=== PATIENT | female | born 1980 | race Caucasian/White ===

== ENCOUNTER 2018-06-30 18:42 | Outpatient (CLI) | payer OTHER ==
--- NOTE | 2018-06-30 20:12 | Ultrasound Report ---
Reason: DATING VIABILITY 1ST TRIMESTER BLEEDING Procedure Date: 06/30/2018 Accession Number: [id number] / [id number] Procedure: US - OB First Trimester CPT Code: FULL RESULT: EXAM: FIRST TRIMESTER OBSTETRIC ULTRASOUND (Less than 11 weeks) EXAM DATE: 06/30/2018 07:39 PM. CLINICAL HISTORY: DATING VIABILITY 1ST TRIMESTER BLEEDING. LMP: 05/13/2018. COMPARISONS: None. TECHNIQUE: Transabdominal ultrasound examination with static image documentation. CLINICAL DATES: EGA 6 weeks 6 days with FRANCISCO 02/17/2019 based on LMP. ASSESSMENT: Gestational Sac: Single intrauterine. Embryo: CRL (crown-rump length) 8.4 mm = 6 weeks 6 days. Cardiac activity: 117 beats per minute. Yolk sac: 4 mm. Amniotic fluid: Not accurately assessed at this gestational age. Early placenta: Not visible at this gestational age. Other: Small perigestational fluid collection likely implantation hemorrhage measuring 1.3 cm.. MATERNAL STRUCTURES: Uterus: Anteverted. Unremarkable. Cervix: Closed. Bilateral ovaries are unremarkable aside from a 1.1 cm left ovarian cyst. Free Fluid: None. Other: None. IMPRESSION: 1. Single viable intrauterine at EGA 6 weeks 6 days with FRANCISCO 02/17/2019 based on crown-rump length, which is concordant with clinical dates. RADIA
== END 2018-06-30 18:43 | disposition home or self-care (01) ==
LOC: DI 18:42
PROVIDERS: ATTEND Midwife
DX: Z34.01 Encounter for supervision of normal first pregnancy, first trimester (principal)
CPT/HCPCS: 76801

== ENCOUNTER 2018-08-29 12:11 | Outpatient (CLI) | payer OTHER ==
[2018-08-29 13:41] LABS: T4 (THYROXINE) 7.45 ug/dL (6.09-12.23)
[2018-08-29 13:46] LABS: FREE T4 (FREE THYROXINE) 0.69 ng/dL (0.58-1.64)
[2018-08-29 13:50] LABS: TOTAL T3 1.35 ng/mL (0.87-1.78)
== END 2018-08-29 12:12 | disposition home or self-care (01) ==
LOC: LAB 12:11
PROVIDERS: ATTEND Midwife
DX: O99.280 Endocrine, nutritional and metabolic diseases complicating pregnancy, unspecified trimester (principal)
CPT/HCPCS: 36415; 81599; 83519; 84436; 84439; 84445; 84480

== ENCOUNTER 2019-02-23 18:29 | Inpatient (IN) | payer OTHER ==
[~2019-02-23 18:29] MED LIST: ACETAMINOPHEN 1,000 MG/100 ML 100 ML IV ONE; HYDROmorphone 1 MG/ML SYRINGE IVP ONE; KETAMINE 500 MG/10 ML VIAL IVP ONE; KETOROLAC 30 MG/ML VIAL IVP ONE; ONDANSETRON 4 MG/2 ML VIAL IVP ONE; PROPOFOL 200 MG/20 ML VIAL IVP ONE; fentaNYL 100 MCG/2 ML VIAL IVP ONE
[2019-02-23] MEDS ORDERED: OXYTOCIN/DEXTROSE 5 % 30 UNIT/500 ML BAG IV SCH (19:06)
[2019-02-23] MEDS ORDERED: fentaNYL 100 MCG/2 ML VIAL IVP PRN (19:08)
[2019-02-23] MEDS ORDERED: ONDANSETRON 4 MG/2 ML VIAL IVP PRN ×2 (19:08→20:44)
[2019-02-23 19:33] LABS: BASOPHILS % (AUTO) 0.4 %; EOSINOPHILS % (AUTO) 0.1 %; HGB - HEMOGLOBIN 13.5 g/dL (12.0-16.0); LYMPHOCYTES % (AUTO) 3.2 %; MEAN CORPUSCULAR HEMOGLOBIN 31.1 pg (27.0-31.0); MEAN CORPUSCULAR HGB CONC 35.2 g/dL (32.0-36.0); MEAN CORPUSCULAR VOLUME 88.2 fL (81.0-99.0); MEAN PLATELET VOLUME 11.6 fL (7.9-10.8); NEUTROPHILS % (AUTO) 86.8 %; PLT - PLATELET COUNT 206 10^3/uL (130-450); RED BLOOD COUNT 4.34 10^6/uL (4.20-5.40); RED CELL DISTRIBUTION WIDTH 15.6 % (12.0-15.0); WHITE BLOOD COUNT 30.7 x10^3/uL (4.8-10.8)
[2019-02-23 19:37] LABS: ABNORMAL LYMPHS % (MANUAL) 0 %
[2019-02-23 19:59] LABS: BAND NEUTROPHILS % (MANUAL) 11 %; LYMPHOCYTES # (MANUAL) 1.5 10^3/uL (1.5-3.5); LYMPHOCYTES % (MANUAL) 5 %; MONOCYTES # (MANUAL) 2.1 10^3/uL (0.0-1.0); PLATELET ESTIMATE, MANUAL NORMAL (130-450,000) (NORMAL); PLATELET MORPHOLOGY NORMAL APPEARANCE (NORMAL); RBC MORPHOLOGY (MULTIPLE) NORMAL APPEARANCE (NORMAL)
[2019-02-23] MEDS ORDERED: LACTATED RINGERS 1,000 ML IV SCH (20:00)
[2019-02-23 20:01] LABS: DIFFERENTIAL COMMENT MANUAL DIFFERENTIAL
--- NOTE | 2019-02-23 20:11 | ANESTHESIA ---
Pre-Anesthesia VS, & Labs - Diagnosis active labor - Procedure vaginal delivery Height 5 ft 9 in - NPO Last Food Intake: 1700 - Is Patient ?: Yes - Lab Results Current Lab Results: Laboratory Tests 02/23/19 19:20: WBC 30.7 H, RBC 4.34, Hgb 13.5, Hct 38.3, MCV 88.2, MCH 31.1 H, MCHC 35.2, RDW 15.6 H, Plt Count 206, MPV 11.6 H, Neut # (Auto) Not Reportable, Lymph # (Auto) Not Reportable, Bee # (Auto) Not Reportable, Eos # (Auto) Not Reportable, Baso # (Auto) Not Reportable, Absolute Nucleated RBC Not Reportable, Total Counted 100, Band Neuts % (Manual) 11 H, Abnorm Lymph % (Manual) 0, Nucleated RBC % Not Reportable, Neutrophils # (Manual) 27.0 H, Lymphocytes # (Manual) 1.5, Monocytes # (Manual) 2.1 H, Eosinophils # (Manual) 0.0, Basophils # (Manual) 0.0, Differential Comment MANUAL DIFFERENTIAL, Manual Slide Review Indicated, Platelet Estimate NORMAL (130-450,000), Platelet Morphology NORMAL APPEARANCE, RBC Morph Micro Appear NORMAL APPEARANCE Fish Bones: 02/23/19 19:20 Home Medications and Allergies Active Medications Fentanyl (Fentanyl) 50 mcg IVP Q1H PRN PRN Reason: PAIN Lactated Ringer's (Lr) 1,000 mls @ 150 mls/hr IV .Q6H40M DANA OXYTOCIN/DEXTROSE 5 % (Pitocin/Dextrose 5%) 30 unit in 500 mls @ 1 mls/hr IV TI TR DANA; Protocol Ondansetron HCl (Zofran Inj) 4 mg IVP Q4H PRN PRN Reason: Nausea / Vomiting Sodium Chloride (Normal Saline Flush 0.9%) 10 ml IVP PRN PRN PRN Reason: NEEDED PER PROVIDER ORDERS Sodium Chloride (Normal Saline Flush 0.9%) 10 ml IVP 0100,0900,1700 [facility] Allergies/Adverse Reactions: Allergies Allergy/AdvReac Type Severity Reaction Status Date / Time No Known Drug Allergies Allergy Verified 02/23/19 19:21 Anes History & Medical History - Anesthetic History Family history of Anesthesia Complications: Denies Family history of Malignant Hyperthermia: Denies - Medical History Cardiovascular: reports: None Pulmonary: reports: None Gastrointestinal: reports: None Urinary: reports: None Neuro: reports: None Musculoskeletal: reports: None Endocrine/Autoimmune: reports: None Blood Disorders: reports: None Skin: reports: None Smoking Status: Never smoker Psychosocial: reports: No issues indicated - Obstetrical History : 1 Parity: 0 Events: positive: None Exam General: Alert, Oriented x3, Cooperative, No acute distress Dental: Poor dentition (nothing loose) Mallampati classification: IV Thyromental Distance: greater than 6 cm Respiratory: Lungs clear, Normal breath sounds, No respiratory distress, No accessory muscle use Mental/Cognitive Status: Alert/Oriented X3, Normal for patient Plan Anesthesia Type: Epidural Consent for Procedure(s) Verified and Reviewed: Yes Code Status: Attempt Resuscitation ASA classification: 2-Mild systemic disease Is this case an emergency?: No
[2019-02-23] MEDS ORDERED: fent/BUPIV 2 MCG/0.125% 250 ML EP ONE (20:15)
[2019-02-23] MEDS ORDERED: ePHEDrine 50 MG/ML VIAL IVP PRN (20:44)
[2019-02-23] MEDS ORDERED: NALOXONE 0.4 MG/ML VIAL IVP PRN (20:44)
[2019-02-23] MEDS ORDERED: NALBUPHINE 10 MG/ML AMP IVP PRN (20:44)
[2019-02-23] MEDS ORDERED: fent/BUPIV 2 MCG/0.125% 250 ML EP PRN (20:44)
--- NOTE | 2019-02-23 22:50 | HISTORY & PHYSICAL EXAMINATION ---
Admit History - Visit Reason Visit Reason: Other (Transfer of care) - : 1 Parity: 0 Care: positive: Other Risk/History: positive: Genital herpes Complications This : positive: None Smoking Status: Never smoker - Mother's Labs Mother's Blood Type: positive: AB Mother's RH: positive: Positive GBS: positive: Group B Step Negative (Patient is a 38-year-old G1, P0 at 40 weeks and 5 days estimated gestational age transferred from [facility] for second stage arrest. complicated by history of genital HSV in 2013. Advanced maternal age. Has been undergoing contractions since 9 1 PM. Slowly progressed to complete early this afternoon. Pushed for several hours with good descent. However contractions have spaced out to less than q. 7 minutes. She is here for transfer of care for augmentation and possible pain management.) Meds/Allgy - Allergies Allergies/Adverse Reactions: Allergies Allergy/AdvReac Type Severity Reaction Status Date / Time No Known Drug Allergies Allergy Verified 02/23/19 19:21 Review of Systems - Other Findings Other Findings: As per HPI remaining systems are negative Physical - Abdominal Exam Vital Signs: See centricity Contraction Intensity: positive: Mild (Cues 7 to 15 minutes) Uterine Resting Tone: positive: Soft - Monitoring Heart Rate Baseline: 150s Strip Review: positive: Category I - Presentation Presentation: positive: Vertex - Vaginal Exam Membranes: positive: Membranes ruptured Dilation (in cm): Complete Effacement (%): Complete it Station: positive: 2 - Speculum Exam Speculum Exam Performed: positive: No - Other Notes Labor Progress Note/Additional Text: Patient presents at 40 and 5 weeks estimated gestational age with second stage arrest and widely spaced week contractions. Augmentation of labor: -Counseled regarding Pitocin including risks and benefits. -Recommend placement of IUPC to better monitor as adequacy of contractions. position is low enough that may be amenable to vacuum delivery. Patient is open to that prior to . -Did discuss risk and benefits of consents were signed. Will allow to push for 1 hour. If baby is not delivered we will proceed with primary . GHTN: -Presented with mild range elevated blood pressures. -Negative PIH symptoms. - PIH labs within normal limits. We will continue to monitor closely. -Labetalol IV as needed for severe range pressures. Elevated WBCs: Maternal WBCs are 30,000. - and maternal heart rates are not tachycardic Periods no purulent discharge -No fevers -We will closely monitor. HSV: -Exam of external genitalia show no evidence of HSV lesions. FWB: -Category 1 tracing -GBS negative -Vertex Risks of prolonged second stage were discussed with patient she understands risks and benefits and wants to proceed. We will proceed cautiously with trial of labor with anticipation of and possible vacuum assistance if safe and appropriate. Otherwise we will proceed with primary for second stage arrest. .
[2019-02-23 22:51] LABS: BASOPHILS % (AUTO) 0.3 %; EOSINOPHILS % (AUTO) 0.2 %; HGB - HEMOGLOBIN 12.9 g/dL (12.0-16.0); LYMPHOCYTES % (AUTO) 4.3 %; MEAN CORPUSCULAR HEMOGLOBIN 30.9 pg (27.0-31.0); MEAN CORPUSCULAR VOLUME 88.5 fL (81.0-99.0); MEAN PLATELET VOLUME 11.6 fL (7.9-10.8); MONOCYTES % (AUTO) 8.1 %; PLT - PLATELET COUNT 216 10^3/uL (130-450); RED BLOOD COUNT 4.17 10^6/uL (4.20-5.40); RED CELL DISTRIBUTION WIDTH 15.8 % (12.0-15.0); WHITE BLOOD COUNT 25.8 x10^3/uL (4.8-10.8)
[2019-02-23 22:53] LABS: ABNORMAL LYMPHS % (MANUAL) 0 %
[2019-02-23 23:08] LABS: URIC ACID 6.4 mg/dL (2.6-7.2)
[2019-02-23 23:09] LABS: BAND NEUTROPHILS % (MANUAL) 1 %; LYMPHOCYTES # (MANUAL) 0.3 10^3/uL (1.5-3.5); LYMPHOCYTES % (MANUAL) 1 %; MONOCYTES # (MANUAL) 2.1 10^3/uL (0.0-1.0)
[2019-02-23 23:10] LABS: DIFFERENTIAL COMMENT MANUAL DIFFERENTIAL; PLATELET ESTIMATE, MANUAL NORMAL (130-450,000) (NORMAL); PLATELET MORPHOLOGY NORMAL APPEARANCE (NORMAL); RBC MORPHOLOGY (MULTIPLE) NORMAL APPEARANCE (NORMAL)
[2019-02-24] MEDS ORDERED: ceFAZolin 2 GM in SODIUM CHLORIDE 0.9% 100ML 100 ML IV ONE (00:17)
[2019-02-24] MEDS ORDERED: CITRIC ACID/SODIUM CITRATE 15 ML UDC PO ONE (00:18)
--- NOTE | 2019-02-24 00:36 | PROVIDER PROGRESS NOTE ---
Subjective - Prog Note Date Prog Note Date: 02/24/19 Prog Note Time: 00:29 - Subjective Subjective: Adequate contraction patterns achieved at Pitocin 8 milliunits/min. Patient pushed well for an hour with minimal to no descent. 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 Recommended stopping pitocin at the 1 hour liliana as previously described discussed and agreed upon. Risks benefits and alternatives of were discussed and consent written informed consent was obtained. Cefazolin 2 g IV on-call to the OR Bicitra 30 mg p.o. on-call to the OR. High risk of hemorrhage: -Crossed and crossed for 2 units PRBC -Hemorrhage cart to be readily available in OR. -Avoid Methergine given elevated blood pressures- -Kiwi vacuum to be on opens in the room. -Nitroglycerin IV to be available in the room given potential for constriction bands in the setting of prolonged second stage -TXA to be administered shortly after delivery of placenta EFM 155 mod sergey 15x15 accels. Decels with pushing TOCO: Q3-5 min Objective - Lab Results Fish Bones: 02/23/19 22:44 Other Labs: Lab Results x24hrs 02/23/19 02/23/19 02/23/19 Range/Units 22:44 22:44 22:44 WBC 25.8 H (4.8-10.8) x10^3/uL RBC 4.17 L (4.20-5.40) 10^6/uL Hgb 12.9 (12.0-16.0) g/dL Hct 36.9 L (37.0-47.0) % MCV 88.5 (81.0-99.0) fL MCH 30.9 (27.0-31.0) pg MCHC 35.0 (32.0-36.0) g/dL RDW 15.8 H (12.0-15.0) % Plt Count 216 (130-450) 10^3/uL MPV 11.6 H (7.9-10.8) fL Neut # (Auto) Not Reportable Lymph # (Auto) Not Reportable [place] # (Auto) Not Reportable Eos # (Auto) Not Reportable Baso # (Auto) Not Reportable Absolute Nucleated RBC Not Reportable Total Counted 100 Band Neuts % (Manual) 1 (0 - 10) % Abnorm Lymph % (Manual) 0 % Nucleated RBC % Not Reportable Neutrophils # (Manual) 23.5 H (1.5-6.6) 10^3/uL Lymphocytes # (Manual) 0.3 L (1.5-3.5) 10^3/uL Monocytes # (Manual) 2.1 H (0.0-1.0) 10^3/uL Eosinophils # (Manual) 0.0 (0-0.7) 10^3/uL Basophils # (Manual) 0.0 (0-0.1) 10^3/uL Differential Comment MANUAL DIFFERENTIAL Manual Slide Review Indicated Platelet Estimate NORMAL (130-450,000) (NORMAL) Platelet Morphology NORMAL APPEARANCE (NORMAL) RBC Morph Micro Appear NORMAL APPEARANCE (NORMAL) Uric Acid 6.4 (2.6-7.2) mg/dL AST 29 (10-42) IU/L Lactate Dehydrogenase 136 (91-225) IU/L Blood Type Blood Type Recheck Antibody Screen Crossmatch IS Only 02/23/19 02/23/19 02/23/19 Range/Units 22:44 19:20 19:20 WBC 30.7 H (4.8-10.8) x10^3/uL RBC 4.34 (4.20-5.40) 10^6/uL Hgb 13.5 (12.0-16.0) g/dL Hct 38.3 (37.0-47.0) % MCV 88.2 (81.0-99.0) fL MCH 31.1 H (27.0-31.0) pg MCHC 35.2 (32.0-36.0) g/dL RDW 15.6 H (12.0-15.0) % Plt Count 206 (130-450) 10^3/uL MPV 11.6 H (7.9-10.8) fL Neut # (Auto) Not Reportable Lymph # (Auto) Not Reportable [place] # (Auto) Not Reportable Eos # (Auto) Not Reportable Baso # (Auto) Not Reportable Absolute Nucleated RBC Not Reportable Total Counted 100 Band Neuts % (Manual) 11 H (0 - 10) % Abnorm Lymph % (Manual) 0 % Nucleated RBC % Not Reportable Neutrophils # (Manual) 27.0 H (1.5-6.6) 10^3/uL Lymphocytes # (Manual) 1.5 (1.5-3.5) 10^3/uL Monocytes # (Manual) 2.1 H (0.0-1.0) 10^3/uL Eosinophils # (Manual) 0.0 (0-0.7) 10^3/uL Basophils # (Manual) 0.0 (0-0.1) 10^3/uL Differential Comment MANUAL DIFFERENTIAL Manual Slide Review Indicated Platelet Estimate NORMAL (130-450,000) (NORMAL) Platelet Morphology NORMAL APPEARANCE (NORMAL) RBC Morph Micro Appear NORMAL APPEARANCE (NORMAL) Uric Acid (2.6-7.2) mg/dL AST (10-42) IU/L Lactate Dehydrogenase (91-225) IU/L Blood Type AB POSITIVE Blood Type Recheck AB POSITIVE Antibody Screen NEGATIVE Crossmatch IS Only See Detail
[2019-02-24] MEDS ORDERED: CARBOPROST TROMETHAMINE 250 MCG/ML AMP IM ONE ×2 (00:53→04:04)
[2019-02-24] MEDS ORDERED: METHYLERGONOVINE 0.2 MG/ML AMP ONE (00:53)
[2019-02-24] MEDS ORDERED: SODIUM CHLORIDE FLUSH 0.9% 10 ML SYRINGE IVP SCH (01:00)
[2019-02-24] MEDS ORDERED: BUPIVACAINE 0.5% PF 10 ML VIAL ONE (01:05)
[2019-02-24] MEDS ORDERED: LIDOCAINE-PF 2% 10 ML AMP SUBQ ONE (01:05)
[2019-02-24] MEDS ORDERED: fentaNYL 100 MCG/2 ML VIAL ONE (01:05)
[2019-02-24] MEDS ORDERED: OXYTOCIN/DEXTROSE 5 % 30 UNIT/500 ML BAG IV ONE (01:06)
[2019-02-24] MEDS ORDERED: miSOPROStol 200 MCG TABLET ONE (01:22)
[2019-02-24] MEDS ORDERED: NITROGLYCERIN 50 MG/250 ML 50 MG/250 ML BOTTLE IV ONE (01:26)
[2019-02-24] MEDS ORDERED: LACTATED RINGERS 1,000 ML IV ONE ×2 (02:00→03:18)
[2019-02-24] MEDS ORDERED: SODIUM CHLORIDE FLUSH 0.9% 10 ML SYRINGE ONE (02:19)
[2019-02-24] MEDS ORDERED: METHYLENE BLUE 0.5% 50 MG/10 ML AMPULE ONE (02:21)
[2019-02-24] MEDS ORDERED: OXYTOCIN/DEXTROSE 5 % 30 UNIT/500 ML BAG IV PRN (04:04)
[2019-02-24] MEDS ORDERED: ONDANSETRON ODT 4 MG TABLET TL PRN (04:04)
[2019-02-24] MEDS ORDERED: SODIUM CHLORIDE FLUSH 0.9% 10 ML SYRINGE IVP PRN (04:04)
[2019-02-24] MEDS ORDERED: diphenhydrAMINE 25 MG CAPSULE PO PRN (04:04)
[2019-02-24] MEDS ORDERED: HYDROCORTISONE 1% CREAM 28 GM TUBE PR PRN (04:04)
[2019-02-24] MEDS ORDERED: diphenhydrAMINE INJ 50 MG/ML VIAL IVP PRN (04:04)
[2019-02-24] MEDS ORDERED: WITCH HAZEL/GLYCERIN 1 PAD TOP PRN (04:04)
[2019-02-24] MEDS ORDERED: HYDROmorphone PCA 20MG/100ML IV PRN (04:09)
[2019-02-24] MEDS ORDERED: LABETALOL 5 MG/1 ML 20 ML MDV IVP PRN (04:13)
--- NOTE | 2019-02-24 04:20 | OPERATIVE REPORT ---
Operative Report - General Admit Date: 02/23/19 Planned Procedure: Primary low transverse Pre-Op Diagnosis: IUP at 40 weeks and 6 days estimated gestational Procedure Performed: Primary low transverse Post Op Diagnosis: Same and delivery of term gestation - Procedure Note Primary Surgeon: Tayolr Oh MD Secondary Surgeon: Dr. Michelle DODGE Anesthesia Provider: Asad Diaz CRNA Anesthesia Technique: Combo spinal/epidural Pathology: Placenta for routine discard IV Fluids (mL): 700 (crystalloid) Estimated Blood Loss (mL): 900 Urine Output (mL): 400 (Blood-tinged urine then bladder filled with methylene blue to assess for bladder injury; blue-tinged urine) Indications: Patient is a 38-year-old at 40 and 6 weeks estimated gestational age who p resented as a transfer of care from [facility]. She had been weightbearing outpatient and have been complete since 1 PM this afternoon. After failing to progress after 4+ hours of pushing she presented to [facility] for possible augmentation and pain management. The time of presentation she was having minimal to no contractions. IUPC was placed and Pitocin was started. tracing was category 1. Once contractions became more regular, she was offered 1 hour of pushing. Patient agreed that if no progress was made within the 1 hour, we would proceed to previous . She pushed well for 1 hour with minimal descent. Assessment of her pelvis and position of the baby deemed vacuum-assisted vaginal delivery to be an inappropriate next step. was recommended. Risks benefits and alternatives were discussed. Consent was obtained to move forward with primary for second stage arrest likely secondary to cephalopelvic disproportio n. Findings: Female infant with head fixed deeply in the pelvis. Apgars of 4 and 9, Weight pending. Cord gases: Arteral 7.13/61.1/15.5/20/21.8/-10.2 Normal uterus, tubes, and ovaries. Complications: Bilateral extensions in the lower uterine segment; Repaired - Other Other Information/Narrative: Risks benefits alternatives for primary low transverse were discussed. Written informed consent was obtained. Discussed increased risk of hemorrhage given prolonged second stage and 2 units of blood were crossmatched and set aside for the procedure. Patient was brought to the operating room where she underwent spinal anesthesia. She was placed in supine position, and prepped and draped in the usual sterile fashion. Garcia catheter was in place and SCDs were on and confirmed to be activated. Cefazolin 2 g IV was administered prior to incision. A Pfannenstiel skin incision was made with the scalpel and carried through to the underlying layer of fascia using the Bovie. The fascia was incised in the midline and extended laterally using Soriano scissors. Elkin clamps were used to elevate the superior aspect of the fascial incision, which was elevated, and the underlying rectus muscles were dissected off bluntly and using Soriano scissors. Attention was then turned to the inferior aspect of the fascial incision, which in similar fashion was grasped with Elkin clamps, elevated, and the underlying rectus muscles were dissected off bluntly and using Soriano scissors. The rectus muscles were bluntly in the midline. The peritoneum was bluntly dissected, entered, and extended superiorly and inferiorly with good visualization of the bladder. The bladder blade was inse rted. Uterine incision was made with a scalpel well above the vesico-uterine fold. The uterus was entered bluntly. The incision was extended with manual stretch and a cephalad caudal direction. Infant's head was lifted from the pelvis with some difficulty. Kiwi vacuum is applied to head to lift the head to the incision. Infant was then delivered from a vertex position. Cord was clamped x2 and cut. Baby was handed off to the pediatric team. Cord blood was collected. A segment of cord was collected for cord gases. Arterial blood gases are noted as above. Subsequent to the collection of this blood, the placenta was removed spontaneously intact with a 3-vessel cord noted. The uterus was exteriorized and cleared of all clots and debris v ia manual swipe using [place] x2. Bilateral extensions were noted in the lower uterine segment. Corners were grasped with Allis clamps. The lateral extensions were closed with 0 Vicryl in a running locked fashion, taking care to avoid the ureters and lateral blood vessels. The hysterotomy was then repaired in 2 layers using 0 Vicryl. First layer was running lock stitch. The second layer was a running imbricating stitch. Good hemostasis was noted. The bladder was then back filled with dilute methylene blue to identify the edges of the bladder and confirmed that there was no damage to the bladder. The bladder was fully insufflated with the methylene blue tinted normal saline. No passage of blue fluid was noted into the pelvis. Bladder was intact. The incision was well away from the upper margin of the vesicouterine peritoneum. The uterus was returned to the abdomen. Paracolic gutters were irrigated and cleared of all clots and debris. Uterine incision and bilateral extensions were again evaluated and confirmed to be hemostatic. The peritoneum was then closed with a running suture using 2-0 Vicryl. The rectus muscles were reapproximated using interrupted mattress sutures using 2-0 chromic. Fascial layers were noted to be hemostatic and free of any small bleeders. Rectus layer was then closed using 0 Vicryl x2 in a running suture, Initiated at each corner and meeting at the midline. Subcutaneous tissue was irrigated. Any residual bleeders were cauterized. The subcutaneous tissue was closed with a running sub-cutaneous suture using 2-0 chromic. Skin was closed with subcuticular suture using 4-0 Monocryl. Steri-Strips were placed and island dressing was placed to protect the incision. Procedure was well-tolerated and without significant complication. Patient and baby were brought to the recovery room in good condition
[2019-02-24] MEDS ORDERED: HYDROmorphone 2 MG/ML VIAL IVP PRN (05:30)
[2019-02-24] MEDS: LACTATED RINGERS 1,000 ML IV SCH ×2 (08:14→09:57)
[2019-02-24] MEDS: DOCUSATE SODIUM 100 MG CAPSULE PO SCH ×2 (08:42→22:38)
[2019-02-24] MEDS: SIMETHICONE CHEW 80 MG TABLET PO SCH ×3 (08:43→18:15)
[2019-02-24] MEDS: oxyCODONE 5 MG TABLET PO PRN ×3 (08:43→18:22)
[2019-02-24] MEDS: KETOROLAC 30 MG/ML VIAL IVP SCH ×3 (08:43→22:07)
[2019-02-24] MEDS: SODIUM CHLORIDE FLUSH 0.9% 10 ML SYRINGE IVP SCH ×2 (08:49→22:08)
[2019-02-24] MEDS: ACETAMINOPHEN 500 MG TABLET PO SCH ×2 (10:37→18:21)
[2019-02-24] MEDS ORDERED: LACTATED RINGERS 500 ML IV ONE (10:46)
[2019-02-24 12:52] LABS: BASOPHILS # (AUTO) 0.1 10^3/uL (0.0-0.1); BASOPHILS % (AUTO) 0.4 %; EOSINOPHILS % (AUTO) 0.2 %; HGB - HEMOGLOBIN 10.2 g/dL (12.0-16.0); LYMPHOCYTES # (AUTO) 1.4 10^3/uL (1.5-3.5); LYMPHOCYTES % (AUTO) 8.2 %; MEAN CORPUSCULAR HEMOGLOBIN 30.4 pg (27.0-31.0); MEAN CORPUSCULAR HGB CONC 34.3 g/dL (32.0-36.0); MEAN CORPUSCULAR VOLUME 88.7 fL (81.0-99.0); MEAN PLATELET VOLUME 11.2 fL (7.9-10.8); MONOCYTES # (AUTO) 1.7 10^3/uL (0.0-1.0); MONOCYTES % (AUTO) 9.8 %; NEUTROPHILS # (AUTO) 13.6 10^3/uL (1.5-6.6); NEUTROPHILS % (AUTO) 80.5 %; PLT - PLATELET COUNT 181 10^3/uL (130-450); RED BLOOD COUNT 3.35 10^6/uL (4.20-5.40); RED CELL DISTRIBUTION WIDTH 15.9 % (12.0-15.0); WHITE BLOOD COUNT 16.9 x10^3/uL (4.8-10.8)
[2019-02-24 13:04] LABS: CREATININE 0.6 mg/dL (0.4-1.0)
[2019-02-24 13:44] LABS: RBC MORPHOLOGY (MULTIPLE) 2+ ANISOCYTOSIS (NORMAL)
--- NOTE | 2019-02-24 14:15 | PROVIDER PROGRESS NOTE ---
Subjective - Prog Note Date Prog Note Date: 02/24/19 Prog Note Time: 11:30 - Subjective Pt reports feeling: Improved Subjective: Genesis is doing well this morning. She is postop day 0 status post LT CS. Pain is well managed with oral medications. She has been up and ambulating and voiding. Tolerating p.o. Baby is doing well and is at bedside Blood pressures have been within normal range since time of delivery. No headac he, vision change, right upper quadrant pain. Objective - Vital Signs/Intake & Output Vital Signs: Vital Signs x48h Temp Pulse Resp BP Pulse Ox 02/24/19 12:32 98.8 F 89 16 108/53 L 97 02/24/19 11:07 12 02/24/19 10:00 16 02/24/19 09:00 16 02/24/19 07:45 98.8 F 92 14 126/62 97 02/24/19 06:30 99.0 F 100 16 125/63 97 Intake & Output: Intake & Output 02/21/19 02/22/19 02/23/19 02/24/19 23:59 23:59 23:59 23:59 Intake Total 10.067 1302.667 Output Total 285 Balance 10.067 1017.667 - Objective General Appearance: positive: No acute distress Neck: positive: Nml inspection Respiratory: positive: No respiratory distress Cardiovascular: positive: Regular rate & rhythm Abdomen: positive: Other (Appropriately tender with fundus firm at umbilicus.Incision is clean, dry, and ntact with island dressing in place) Back: positive: Nml inspection Skin: positive: Color nml Neurologic/Psychiatric: positive: Oriented x3 - Lab Results Fish Bones: 02/24/19 12:45 02/24/19 12:45 Other Labs: Lab Results x24hrs 02/24/19 02/24/19 02/23/19 Range/Units 12:45 12:45 22:44 WBC 16.9 H (4.8-10.8) x10^3/uL RBC 3.35 L (4.20-5.40) 10^6/uL Hgb 10.2 L (12.0-16.0) g/dL Hct 29.7 L (37.0-47.0) % MCV 88.7 (81.0-99.0) fL MCH 30.4 (27.0-31.0) pg MCHC 34.3 (32.0-36.0) g/dL RDW 15.9 H (12.0-15.0) % Plt Count 181 (130-450) 10^3/uL MPV 11.2 H (7.9-10.8) fL Neut # (Auto) 13.6 H Lymph # (Auto) 1.4 L [place] # (Auto) 1.7 H Eos # (Auto) 0.0 Baso # (Auto) 0.1 Absolute Nucleated RBC 0.00 Total Counted Band Neuts % (Manual) (0 - 10) % Abnorm Lymph % (Manual) % Nucleated RBC % 0.0 Neutrophils # (Manual) (1.5-6.6) 10^3/uL Lymphocytes # (Manual) (1.5-3.5) 10^3/uL Monocytes # (Manual) (0.0-1.0) 10^3/uL Eosinophils # (Manual) (0-0.7) 10^3/uL Basophils # (Manual) (0-0.1) 10^3/uL Differential Comment Manual Slide Review Indicated Platelet Estimate (NORMAL) Platelet Morphology (NORMAL) RBC Morph Micro Appear 2+ ANISOCYTOSIS (NORMAL) Creatinine 0.6 (0.4-1.0) mg/dL Estimated GFR (MDRD) 112 (>89) Uric Acid (2.6-7.2) mg/dL AST 26 (10-42) IU/L Lactate Dehydrogenase 136 (91-225) IU/L Blood Type Blood Type Recheck Antibody Screen Crossmatch IS Only 02/23/19 02/23/19 02/23/19 Range/Units 22:44 22:44 22:44 WBC 25.8 H (4.8-10.8) x10^3/uL RBC 4.17 L (4.20-5.40) 10^6/uL Hgb 12.9 (12.0-16.0) g/dL Hct 36.9 L (37.0-47.0) % MCV 88.5 (81.0-99.0) fL MCH 30.9 (27.0-31.0) pg MCHC 35.0 (32.0-36.0) g/dL RDW 15.8 H (12.0-15.0) % Plt Count 216 (130-450) 10^3/uL MPV 11.6 H (7.9-10.8) fL Neut # (Auto) Not Reportable Lymph # (Auto) Not Reportable [place] # (Auto) Not Reportable Eos # (Auto) Not Reportable Baso # (Auto) Not Reportable Absolute Nucleated RBC Not Reportable Total Counted 100 Band Neuts % (Manual) 1 (0 - 10) % Abnorm Lymph % (Manual) 0 % Nucleated RBC % Not Reportable Neutrophils # (Manual) 23.5 H (1.5-6.6) 10^3/uL Lymphocytes # (Manual) 0.3 L (1.5-3.5) 10^3/uL Monocytes # (Manual) 2.1 H (0.0-1.0) 10^3/uL Eosinophils # (Manual) 0.0 (0-0.7) 10^3/uL Basophils # (Manual) 0.0 (0-0.1) 10^3/uL Differential Comment MANUAL DIFFERENTIAL Manual Slide Review Indicated Platelet Estimate NORMAL (130-450,000) (NORMAL) Platelet Morphology NORMAL APPEARANCE (NORMAL) RBC Morph Micro Appear NORMAL APPEARANCE (NORMAL) Creatinine (0.4-1.0) mg/dL Estimated GFR (MDRD) (>89) Uric Acid 6.4 (2.6-7.2) mg/dL AST 29 (10-42) IU/L Lactate Dehydrogenase (91-225) IU/L Blood Type Blood Type Recheck AB POSITIVE Antibody Screen Crossmatch IS Only 02/23/19 02/23/19 Range/Units 19:20 19:20 WBC 30.7 H (4.8-10.8) x10^3/uL RBC 4.34 (4.20-5.40) 10^6/uL Hgb 13.5 (12.0-16.0) g/dL Hct 38.3 (37.0-47.0) % MCV 88.2 (81.0-99.0) fL MCH 31.1 H (27.0-31.0) pg MCHC 35.2 (32.0-36.0) g/dL RDW 15.6 H (12.0-15.0) % Plt Count 206 (130-450) 10^3/uL MPV 11.6 H (7.9-10.8) fL Neut # (Auto) Not Reportable Lymph # (Auto) Not Reportable [place] # (Auto) Not Reportable Eos # (Auto) Not Reportable Baso # (Auto) Not Reportable Absolute Nucleated RBC Not Reportable Total Counted 100 Band Neuts % (Manual) 11 H (0 - 10) % Abnorm Lymph % (Manual) 0 % Nucleated RBC % Not Reportable Neutrophils # (Manual) 27.0 H (1.5-6.6) 10^3/uL Lymphocytes # (Manual) 1.5 (1.5-3.5) 10^3/uL Monocytes # (Manual) 2.1 H (0.0-1.0) 10^3/uL Eosinophils # (Manual) 0.0 (0-0.7) 10^3/uL Basophils # (Manual) 0.0 (0-0.1) 10^3/uL Differential Comment MANUAL DIFFERENTIAL Manual Slide Review Indicated Platelet Estimate NORMAL (130-450,000) (NORMAL) Platelet Morphology NORMAL APPEARANCE (NORMAL) RBC Morph Micro Appear NORMAL APPEARANCE (NORMAL) Creatinine (0.4-1.0) mg/dL Estimated GFR (MDRD) (>89) Uric Acid (2.6-7.2) mg/dL AST (10-42) IU/L Lactate Dehydrogenase (91-225) IU/L Blood Type AB POSITIVE Blood Type Recheck Antibody Screen NEGATIVE Crossmatch IS Only See Detail Assessment/Plan - Problem List (1) Delivery by section Impression: Postop day 0 status post LT CS Postop: -Doing well postop. -Up and ambulating -Tolerating p.o. -Pain managed with oral pain medications -Voiding G HTN: -Blood pressures well within normal limits since time of delivery -Continue to monitor Anticipate DC home on postop day 2.
[2019-02-24] MEDS: ceFAZolin 2 GM in SODIUM CHLORIDE 0.9% 100ML 100 ML IV SCH (15:09)
[2019-02-24] MEDS ORDERED: HYDROmorphone 0.5 MG/0.5 ML SYRINGE IVP PRN (18:33)
[2019-02-24] MEDS: SODIUM CHLORIDE FLUSH 0.9% 10 ML SYRINGE IVP PRN (22:08)
[2019-02-25] MEDS: oxyCODONE 5 MG TABLET PO PRN ×3 (00:07→18:26)
[2019-02-25] MEDS: ceFAZolin 2 GM in SODIUM CHLORIDE 0.9% 100ML 100 ML IV SCH ×2 (00:08→09:55)
[2019-02-25] MEDS: SODIUM CHLORIDE FLUSH 0.9% 10 ML SYRINGE IVP SCH ×2 (00:09→10:09)
[2019-02-25] MEDS ORDERED: IBUPROFEN 600 MG TABLET PO SCH (05:00)
[2019-02-25] MEDS: KETOROLAC 30 MG/ML VIAL IVP SCH (05:46)
[2019-02-25] MEDS: SODIUM CHLORIDE FLUSH 0.9% 10 ML SYRINGE IVP PRN (05:46)
[2019-02-25] MEDS: ACETAMINOPHEN 500 MG TABLET PO SCH ×3 (05:47→21:41)
[2019-02-25] MEDS ORDERED: KETOROLAC 30 MG/ML VIAL ONE (05:53)
[2019-02-25] MEDS: DOCUSATE SODIUM 100 MG CAPSULE PO SCH ×2 (08:20→21:41)
[2019-02-25] MEDS: SIMETHICONE CHEW 80 MG TABLET PO SCH ×3 (08:21→21:41)
[2019-02-25] MEDS: IBUPROFEN 600 MG TABLET PO SCH ×2 (12:26→18:26)
--- NOTE | 2019-02-25 17:33 | PROVIDER PROGRESS NOTE ---
Subjective - Prog Note Date Prog Note Date: 02/25/19 Prog Note Time: 12:32 - Subjective Pt reports feeling: Improved Subjective: Post op day 1 status post low transverse for second stage arrest new Doing well. Up and ambulating, tolerating p.o., voiding. Lochia moderate to minimal. Pain well managed with oral pain medications. Breast-feeding is going well. Patient has no complaints. Objective - Vital Signs/Intake & Output Vital Signs: Vital Signs x48h Temp Pulse Resp BP BP Pulse Ox 02/25/19 17:01 98.4 F 93 16 100/57 L 97 02/25/19 13:52 98.6 F 76 15 112/69 98 02/25/19 10:00 98.1 F 91 18 99/62 96 Intake & Output: Intake & Output 02/22/19 02/23/19 02/24/19 02/25/19 23:59 23:59 23:59 23:59 Intake Total 10.067 2402.667 700 Output Total 2950 600 Balance 10.067 -547.333 100 - Objective General Appearance: positive: No acute distress Neck: positive: Nml inspection Respiratory: positive: Chest non-tender, No respiratory distress Cardiovascular: positive: Regular rate & rhythm Abdomen: positive: Other (Fundus firm below the umbilicus. Incision with Steri- Strips clean dry and intact) Skin: positive: Color nml Extremities: positive: Non-tender, Other (Mild pedal edema) Neurologic/Psychiatric: positive: Oriented x3 - Lab Results Fish Bones: 02/24/19 12:45 02/24/19 12:45 Assessment/Plan - Problem List (1) Delivery by section Impression: Postop day 1 status post LT CS -Blood pressures have been within normal limits at the time of delivery. -Normal temperature for 24 hours postop. Will discontinue cefazolin -Up and ambulating, tolerating p.o., voiding, pain well managed. Making appropriate progress towards discharge Anticipate DC home in the morning
[2019-02-26] MEDS: IBUPROFEN 600 MG TABLET PO SCH ×2 (01:00→07:36)
[2019-02-26] MEDS: oxyCODONE 5 MG TABLET PO PRN (01:14)
[2019-02-26] MEDS: ACETAMINOPHEN 500 MG TABLET PO SCH ×2 (06:19→07:28)
[2019-02-26] MEDS: SODIUM CHLORIDE FLUSH 0.9% 10 ML SYRINGE IVP SCH (07:31)
[2019-02-26] MEDS: DOCUSATE SODIUM 100 MG CAPSULE PO SCH (07:36)
[2019-02-26] MEDS: SIMETHICONE CHEW 80 MG TABLET PO SCH (08:45)
[2019-02-26 13:14] VITALS: BP 125/59
--- NOTE | 2019-02-26 15:16 | Labor Flowsheet ---
Labor Flowsheet Datetime Report Generated by CPN: 02/26/2019 15:15 Datetime: 02/24/2019 01:04 Comments: monitoring discontinued, patient transferred to OR. Datetime: 02/24/2019 01:00 Pulse: 111 SpO2 (%): 98 LaborFlag: Labor Datetime: 02/24/2019 00:30 UTERINE ACTIVITY Monitor Mode: Internal Frequency (min): 3-5 Quality: Strong Duration (sec): 90-120 Pattern: Normal: <= 5 Contractions in 10 Minutes Resting Tone (Palpate): Relaxed Resting Tone IUP (mmHg): 5 Intensity IUP (mmHg): 50 ASSESSMENT A Monitor Mode: External US FHR Baseline Rate : 155 Variability: Moderate 6-25 bpm Accelerations: 15X15 Decelerations: None Category: Category I Datetime: 02/24/2019 00:11 MEDICATIONS Pitocin (milliunits): Discontinued Datetime: 02/24/2019 00:10 COMMUNICATION Communication: Provider at Bedside Communication Comments: Dr. McSorley @ bedside; decision made for c/section for failure to progress Datetime: 02/23/2019 23:56 VITAL SIGNS NBP Sys/Kandy/Mean (mmHg): 151 : 73 : 91 Datetime: 02/23/2019 23:17 Medication Comments: Increased to [address] McSorley, provider @ bedside Datetime: 02/23/2019 23:15 Contraction Comments: with pushes Datetime: 02/23/2019 23:10 STAGE 2 Pushing: Coached on Pushing Pushing Position: Pushing with Contractions Pushing Progress: Descent with Pushing Datetime: 02/23/2019 23:00 Temperature (C): 36.7 Datetime: 02/23/2019 20:30 Monitor Interventions for FHR: FSE Applied Datetime: 02/23/2019 20:25 Epidural Procedure: Test Dose Datetime: 02/23/2019 20:10 PROCEDURE TIME OUT Procedure Verify: Correct Patient Identity; Accurate Procedure Consent Form; Agreement on Procedure to be Done; Correct Patient Position; Safety Precautions Based on Patient History or Medication Use ANESTHESIA Anesthesia Plans: Epidural Epidural Positioning: Sitting Datetime: 02/23/2019 19:50 Provider Notified (Name): CUSTOMER SERVICES SUPERVISOR Joe Notification Reason: Patient Request Datetime: 02/23/2019 19:33 Monitor Interventions for UA: IUPC Inserted VAGINAL EXAM Dilatation (cm): 10.0 Effacement (%): 100 Station: 3 Exam by: Dr. 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
--- NOTE | 2019-03-04 02:46 | DISCHARGE SUMMARY ---
"Discharge Summary Admit Date: 02/23/19 Discharge Date: 02/26/19 Discharging Provider: Nya Oh MD Code Status: Attempt Resuscitation Condition at Discharge: Good Discharge Disposition: 01 Home, Self Care - DIAGNOSES Admission Diagnoses: IUP at 40w5d EGA Second stage arrest History of HSV Gestational hypertension Discharge Diagnoses with Status of Each Condition: Same and delivery of term gestation Primary fort second stage arrest/cephalopelvic disproportion - HPI History of Present Illness: Ms Ching is a 38-year-old G1, P0 at 40 weeks and 5 days estimated gestational age who presented from [facility] with second stage arrest. complicated by history of genital HSV in 2013. Advanced maternal age. Had been undergoing contractions since 02/22/19 PM. Slowly progressed to complete early in the afternoon on 02/23/19. Pushed for several hours with good descent per outside provider. However contractions have spaced out to less than every 7 minutes. She presents transfer of care for augmentation and possible pain management. - CONSULTS | PROCEDURES Procedures: Primary low transverse - HOSPITAL COURSE Hospital Course: Admitted at 40w5d ega with second stage arrest. Counseled at admission with regard to the following: Augmentation of labor: -Counseled regarding Pitocin including risks and benefits. -Recommend placement of IUPC to better monitor as adequacy of contractions. position is low enough that may be amenable to vacuum delivery. -Did discuss risk and benefits of consents were signed. Will allow to push for 1 hour. If baby is not delivered, will proceed with primary . GHTN: -Presented with mild range elevated blood pressures. -Negative PIH symptoms. - PIH labs within normal limits. . Elevated WBCs: Maternal WBCs are 30,000. - and maternal heart rates are not tachycardic Periods no purulent discharge -No fevers -We will closely monitor. HSV: -Exam of external genitalia show no evidence of HSV lesions. FWB: -Category 1 tracing -GBS negative -Vertex Pitocin was started. Epidural was placed. IUPC was palced for more accurate titration of pitocin. IUPC revealed that contractions were not adequate. Pitocin was titrated up to 8 mU/min before adeqaucy was reached. Once contractions became more regular, she was offered 1 hour of pushing. Patient agreed that if no progress was made within the 1 hour, we would proceed to previous . She pushed well for 1 hour with minimal descent. Assessment of her pelvis and position of the baby deemed vacuum-assisted vaginal delivery to be an inappropriate next step. was recommended. Risks benefits and altern atives were discussed. Consent was obtained to move forward with primary C- section for second stage arrest likely secondary to cephalopelvic disproportion. Proceeded with primary , delivering female with head fixed deeply in the pelvis. Apgars of 4 and 9. Weight 3840g Cord gases: Arteral 7.13/61.1/15.5/20/21.8/-10.2 Normal uterus, tubes, and ovaries. There were bilateral uterine extensions, repaired with 0-Vicryl. See procedure note. EBL 900. Cefazolin continued for 24 hours post procedure given elevated WBC and presence of extensions. Post-operative course was uncomplicated. Discharged to home on POD#2. - ALLERGIES Allergies/Adverse Reactions: Allergies Allergy/AdvReac Type Severity Reaction Status Date / Time No Known Drug Allergies Allergy Verified 02/23/19 19:21 - MEDICATIONS Home Medications: Ambulatory Orders Medication Instructions Recorded Confirmed Amox/Clav 875/125 [Augmentin] 1 each PO Q12H #20 tablet 03/02/19 - PHYSICAL EXAM AT DISCHARGE General Appearance: positive: No acute distress Neck: positive: Nml inspection Respiratory: positive: Chest non-tender, No respiratory distress, Breath sounds nml Cardiovascular: positive: Regular rate & rhythm Abdomen: positive: Non-tender, Other (Incision clean dry and intact with Steri- Strips in place) Skin: positive: Color nml Extremities: positive: Non-tender, No pedal edema Neurologic/Psychiatric: positive: Oriented x3 - LABS Result Diagrams: 02/24/19 12:45 02/24/19 12:45 - FOLLOW UP Follow Up: Discharge to home with follow-up in clinic in 1 week for incision check and at 6 weeks for for routine exam - TIME SPENT Time Spent in Discharge (Minutes): 30"
== END 2019-02-26 14:15 | disposition home or self-care (01) | DRG 787 ==
LOC: FBP 18:49
PROVIDERS: ADMIT Obstetrics & Gynecology; ATTEND Obstetrics & Gynecology
PROC: 10D00Z1 Extraction of Products of Conception, Low, Open Approach (ICD-10-PCS; principal; 2019-02-24 01:00)
DX: O62.1 Secondary uterine inertia (principal); O98.32 Other infections with a predominantly sexual mode of transmission complicating childbirth; O75.2 Pyrexia during labor, not elsewhere classified; A60.00 Herpesviral infection of urogenital system, unspecified; O13.4 Gestational [pregnancy-induced] hypertension without significant proteinuria, complicating childbirth; O75.89 Other specified complications of labor and delivery; D72.829 Elevated white blood cell count, unspecified; Z3A.40 40 weeks gestation of pregnancy; Z37.0 Single live birth
CPT/HCPCS: 36415; 82565; 83615; 84450; 84550; 85025; 86850; 86900; 86901; 86920; A9270; J0131; J1170; J7120

== ENCOUNTER 2019-03-02 11:10 | Emergency (ER) | payer OTHER ==
[2019-03-02] MEDS ORDERED: LIDOCAINE 1% 2 ML VIAL MC ONE (11:56)
[2019-03-02] MEDS ORDERED: cefTRIAXone 1 GM VIAL IM STA (11:56)
--- NOTE | 2019-03-02 11:57 | ED Physician Documentation ---
History of Present Illness - Stated complaint Stated Complaint: POST C SECTION COMPLICATIONS - Chief complaint Chief Complaint: Abd Pain - History obtained from History obtained from: Patient, Family - History of Present Illness Timing: Enter time (0900), Today - Additonal information Additional information: 38-year old female who is 6 days status post low transverse section for failure to progress has been recovering at home well and this morning she did not feel too well had a little bit more pain in her incision area than usual and noted some bleeding from around the incision. She was able to take her pain medication and she had some improvement in her symptoms and as time has progressed she is noted the redness to the incision area that was not there. Previously. The incision has moved past the margins of the tape and she is come into the emergency department after calling the nurse.The patient indicates the redness is new she is not having nausea or vomiting she has not had a fever. Review of Systems Constitutional: reports: Fatigue. denies: Fever, Chills Eyes: denies: Decreased vision Ears: denies: Ear pain Nose: denies: Rhinorrhea / runny nose, Congestion Throat: denies: Sore throat Respiratory: denies: Cough GI: reports: Abdominal Pain. denies: Vomiting : denies: Dysuria Skin: reports: Rash Musculoskeletal: denies: Neck pain, Back pain, Extremity pain Neurologic: denies: Generalized weakness, Focal weakness, Numbness PD PAST MEDICAL HISTORY - Past Medical History Past Medical History: Yes Cardiovascular: None Respiratory: None Neuro: None Endocrine/Autoimmune: None GI: None : None Psych: Depression, Anxiety Musculoskeletal: None Derm: None - Past Surgical History /REPAIRER SASH AND DOOR: section - Present Medications Home Medications: Ambulatory Orders Medication Instructions Recorded Confirmed Amox/Clav 875/125 [Augmentin] 1 each PO Q12H #20 tablet 03/02/19 - Allergies Allergies/Adverse Reactions: Allergies Allergy/AdvReac Type Severity Reaction Status Date / Time No Known Drug Allergies Allergy Verified 02/23/19 19:21 - Social History Does the pt smoke?: No Smoking Status: Never smoker Does the pt drink ETOH?: No Does the pt have substance abuse?: No - Immunizations Immunizations are current?: Yes - POLST Patient has POLST: No PD ED PE NORMAL - Vitals Vital signs reviewed: Yes (hypertensive ) - General General: Alert and oriented X 3, No acute distress, Well developed/nourished - HEENT HEENT: Atraumatic, PERRL, EOMI - Neck Neck: Supple, no meningeal sign, No bony TTP - Cardiac Cardiac: RRR, No murmur - Respiratory Respiratory: No respiratory distress, Clear bilaterally - Abdomen Abdomen: Soft, Other (no specific tenderness the inscision appears to be healing well without dehisence or specific tenderness to the inscision. There is blanching erythema that is beyond the border of the steri-strips and spares the right lower aspect of the inscision. There is no fluctuance or drainage from the area. ) - Back Back: No CVA TTP, No spinal TTP - Derm Derm: Normal color, Warm and dry, No rash - Extremities Extremities: No deformity, No edema - Neuro Neuro: Alert and oriented X 3, manager assurance 2-12 intact, No motor deficit, No sensory deficit, Normal speech Eye Opening: Spontaneous Motor: Obeys Commands Verbal: Oriented GCS Score: 15 - Psych Psych: Normal mood, Normal affect Results - Vitals Vitals: Vital Signs - 24 hr 03/02/19 03/02/19 11:16 11:20 Temperature 36.2 C L 98.3 C H Heart Rate 96 82 Respiratory 18 16 Rate Blood Pressure 134/102 H 127/82 H O2 Saturation 97 100 Oxygen O2 Source Room air PD MEDICAL DECISION MAKING - ED course Complexity details: reviewed old records, considered differential, d/w patient, d/w family, d/w intelligence consultant (Bret recommends IM rocephin and requests patient come to L&D for exam now. ) ED course: 38-year-old female 6 days status post low transverse section appears to have superficial infection of her incision. There is no drainage to the area there is no fluctuance.She is administered a gram of Rocephin IM. Departure - Departure Disposition: 01 Home, Self Care Clinical Impression: Superficial incisional infection of surgical site Condition: Stable Instructions: ED Wound Infec After Surgery Follow-Up: Xuan Oh MD [Provider Admit Priv/Credential] - Prescriptions: Amox/Clav 875/125 [Augmentin] 1 each PO Q12H #20 tablet
[2019-03-02 12:26] VITALS: BP 136/78
== END 2019-03-02 12:27 | disposition home or self-care (01) ==
LOC: ED 11:10
DX: O86.01 Infection of obstetric surgical wound, superficial incisional site (principal)
CPT/HCPCS: 96372; 99283; 99284

== ENCOUNTER 2020-06-06 15:00 | Outpatient (CLI) | payer BC, OTHER | END 2020-06-06 23:59 | disposition home or self-care (01) | LOC: LAB.R 15:00 | PROVIDERS: ATTEND Physician Assistant Medical | DX: R30.0 Dysuria (principal) | CPT/HCPCS: 87086 ==

== ENCOUNTER 2021-06-07 08:00 | Outpatient (CLI) | payer BC ==
[2021-06-07 19:56] LABS: BILIRUBIN,URINE NEGATIVE (NEGATIVE); GLUCOSE, URINE (UA) NEGATIVE (NEGATIVE); KETONES,URINE (UA) NEGATIVE (NEGATIVE); LEUKOCYTE ESTERASE, URINE TRACE (NEGATIVE); NITRITE,URINE NEGATIVE (NEGATIVE); OCCULT BLOOD,URINE NEGATIVE (NEGATIVE); PROTEIN,URINE NEGATIVE (NEGATIVE); UROBILINOGEN,URINE 0.2 (NORMAL) E.U./dL (NORMAL)
[2021-06-07 20:11] LABS: BACTERIA,URINE None Seen /HPF (None Seen); CLARITY,URINE CLEAR (CLEAR); RBC,URINE 0-5 /HPF (0-5); SQUAMOUS EPITHELIAL CELL,UR NONE SEEN (<= Few)
== END 2021-06-07 23:59 | disposition home or self-care (01) ==
LOC: LAB.S 08:00
PROVIDERS: ATTEND Emergency Medicine
DX: R30.0 Dysuria (principal)
CPT/HCPCS: 81001; 87077; 87086; 87181

== ENCOUNTER 2021-06-12 12:16 | Outpatient (CLI) | payer BC ==
[2021-06-12 14:41] LABS: BASOPHILS % (AUTO) 1.4 %; EOSINOPHILS % (AUTO) 0.9 %; HCT - HEMATOCRIT 38.1 % (37.0-47.0); HGB - HEMOGLOBIN 12.7 g/dL (12.0-16.0); LYMPHOCYTES % (AUTO) 14.8 %; MEAN CORPUSCULAR HEMOGLOBIN 31.4 pg (27.0-31.0); MEAN CORPUSCULAR HGB CONC 33.3 g/dL (32.0-36.0); MEAN CORPUSCULAR VOLUME 94.3 fL (81.0-99.0); MEAN PLATELET VOLUME 10.1 fL (7.9-10.8); MONOCYTES % (AUTO) 18.4 %; NEUTROPHILS % (AUTO) 62.1 %; PLT - PLATELET COUNT 365 10^3/uL (130-450); RED BLOOD COUNT 4.04 10^6/uL (4.20-5.40); RED CELL DISTRIBUTION WIDTH 13.1 % (12.0-15.0); WHITE BLOOD COUNT 10.6 x10^3/uL (4.8-10.8)
[2021-06-12 14:49] LABS: SLIDE REVIEW? Indicated
[2021-06-12 14:53] LABS: ALBUMIN 3.6 g/dL (3.2-5.5); ALBUMIN/GLOBULIN RATIO 0.9 (1.0-2.2); BILIRUBIN,TOTAL 0.6 mg/dL (0.2-1.0); CALCIUM 9.3 mg/dL (8.5-10.3); CREATININE 0.7 mg/dL (0.4-1.0); POTASSIUM 4.2 mmol/L (3.5-5.0); TOTAL PROTEIN 7.6 g/dL (6.7-8.2)
[2021-06-12 15:04] LABS: THYROID STIMULATING HORMONE 0.49 uIU/mL (0.34-5.60)
[2021-06-12 15:06] LABS: FREE T4 (FREE THYROXINE) 0.87 ng/dL (0.58-1.64)
[2021-06-12 16:38] LABS: ABNORMAL LYMPHS % (MANUAL) 0 %; BAND NEUTROPHILS % (MANUAL) 0 %
[2021-06-12 16:40] LABS: DIFFERENTIAL COMMENT MANUAL DIFFERENTIAL; EOSINOPHILS # (MANUAL) 0.1 10^3/uL (0-0.7); LYMPHOCYTES # (MANUAL) 1.5 10^3/uL (1.5-3.5); LYMPHOCYTES % (MANUAL) 14 %; PLATELET ESTIMATE, MANUAL NORMAL (130-450,000) (NORMAL); PLATELET MORPHOLOGY NORMAL APPEARANCE (NORMAL); RBC MORPHOLOGY (MULTIPLE) NORMAL APPEARANCE (NORMAL); WBC MORPHOLOGY (MULTIPLE) NORMAL APPEARANCE (NORMAL)
== END 2021-06-12 12:17 | disposition home or self-care (01) ==
LOC: LAB.S 12:16
PROVIDERS: ATTEND Registered Nurse
DX: F33.1 Major depressive disorder, recurrent, moderate (principal); F41.1 Generalized anxiety disorder; F90.0 Attention-deficit hyperactivity disorder, predominantly inattentive type
CPT/HCPCS: 36415; 80053; 81599; 84439; 84443; 84481; 84482; 85025

== ENCOUNTER 2022-08-16 08:44 | Outpatient (CLI) | payer BC ==
--- NOTE | 2022-08-16 11:51 | Ultrasound Report ---
PROCEDURE: OB First Trimester INDICATIONS: SUPERVISION OF OUTSIDE/PRIOR DATING DATA: Last menstrual period (LMP): 05/16/2022. LMP-based estimated date of delivery (FRANCISCO): 02/20/2023. First dating scan (date and location): 08/16/2022. Estimated date of delivery (FRANCISCO) from first dating scan: 02/20/2023. The below data below was generated using the study generated FRANCISCO of 02/20/2023 TECHNIQUE: Real-time scanning was performed of the fetus and maternal pelvic organs, with image documentation. COMPARISON: 02/13/2022 FINDINGS: Single intrauterine gestational sac is seen with fetus and yolk sac seen. Embryo: [place]-rump length measures 6.9 cm. Estimated gestational age is 13 weeks, 1 day. Heart rate: 155 bpm. Measurement variability in dating: +/- 4 weeks by LMP, +/- 7 days by mean sac diameter (use before 6 weeks gestation if crown-rump length not able to be measured), +/- 5 days by crown-rump length (6-12 weeks gestation). Cervix is closed, cervical canal measures 3.6 cm in length. Maternal organs: 1.3 x 1.1 x 1.3 cm intramural fibroid in anterior myometrium is seen. 1.5 cm corpus luteal cyst is noted in right ovary. Left ovary is within normal limits. IMPRESSION: 1. Single live intrauterine gestation with fetus and yolk sac seen. heart rate is 155 bpm. Ana mated gestational age is 13 weeks, 1 day. 2. Anterior uterine fibroid as above. Corpus luteal cyst in right ovary. No ectopic gestational sac. Reviewed by: Eduard Chiang MD on 08/16/2022 11:50 AM PST Approved by: Eduard Chiang MD on 08/16/2022 11:50 AM PST Station ID: [id number]
== END 2022-08-16 08:45 | disposition home or self-care (01) ==
LOC: DI 08:44
PROVIDERS: ATTEND Obstetrics & Gynecology
DX: O34.11 Maternal care for benign tumor of corpus uteri, first trimester (principal); D25.1 Intramural leiomyoma of uterus; O34.81 Maternal care for other abnormalities of pelvic organs, first trimester; N83.11 Corpus luteum cyst of right ovary; Z3A.13 13 weeks gestation of pregnancy

== ENCOUNTER 2022-08-30 09:13 | Outpatient (CLI) | payer BC ==
[2022-08-30 09:47] LABS: BASOPHILS # (AUTO) 0.1 10^3/uL (0.0-0.1); BASOPHILS % (AUTO) 0.9 %; EOSINOPHILS # (AUTO) 0.1 10^3/uL (0.0-0.7); EOSINOPHILS % (AUTO) 1.5 %; HCT - HEMATOCRIT 35.9 % (37.0-47.0); HGB - HEMOGLOBIN 12.1 g/dL (12.0-16.0); LYMPHOCYTES # (AUTO) 1.6 10^3/uL (1.5-3.5); MEAN CORPUSCULAR HEMOGLOBIN 30.8 pg (27.0-31.0); MEAN CORPUSCULAR HGB CONC 33.7 g/dL (32.0-36.0); MEAN CORPUSCULAR VOLUME 91.3 fL (81.0-99.0); MEAN PLATELET VOLUME 10.1 fL (7.9-10.8); MONOCYTES # (AUTO) 0.9 10^3/uL (0.0-1.0); MONOCYTES % (AUTO) 10.8 %; NEUTROPHILS # (AUTO) 5.9 10^3/uL (1.5-6.6); NEUTROPHILS % (AUTO) 67.9 %; PLT - PLATELET COUNT 259 10^3/uL (130-450); RED BLOOD COUNT 3.93 10^6/uL (4.20-5.40); RED CELL DISTRIBUTION WIDTH 12.8 % (12.0-15.0); WHITE BLOOD COUNT 8.7 x10^3/uL (4.8-10.8)
[2022-08-31 06:11] LABS: HBsAG SCREEN Negative (Negative)
[2022-08-31 07:10] LABS: RPR Non Reactive (Non Reactive)
[2022-08-31 08:10] LABS: VARICELLA-ZOSTER AB IGG 3648 index (Immune >165)
[2022-09-01 05:12] LABS: HCV AB Non Reactive (Non Reactive); HIV SCREEN 4TH GENERATION Non Reactive (Non Reactive)
== END 2022-08-30 09:14 | disposition home or self-care (01) ==
LOC: LAB 09:13
PROVIDERS: ATTEND Obstetrics & Gynecology
DX: Z34.90 Encounter for supervision of normal pregnancy, unspecified, unspecified trimester (principal); Z36.89 Encounter for other specified antenatal screening
CPT/HCPCS: 36415; 85025; 86592; 86762; 86787; 86803; 86850; 86900; 86901; 87340; 87389

== ENCOUNTER 2022-10-16 20:44 | Outpatient (CLI) | payer BC ==
--- NOTE | 2022-10-17 16:06 | Ultrasound Report ---
PROCEDURE: OB Detailed Eval INDICATIONS: SUPERVISION OF OUTSIDE/PRIOR DATING DATA: Last menstrual period (LMP): 05/16/2022. LMP-based estimated date of delivery (FRANCISCO): 02/20/2023. First dating scan (date and location): 08/16/2022. Estimated date of delivery (FRANCISCO) from first dating scan: 02/20/2023. The below data below was generated using the ultrasound and clinical FRANCISCO of 02/20/2023 TECHNIQUE: Real-time scanning was performed of the fetus, with image documentation and biometric measurements. COMPARISON: OB ultrasound 10/16/2022 FINDINGS: General: A single living intrauterine gestation is present. Presentation: Vertex Placenta: Placental position is posterior, without previa. Amniotic fluid index: 11.6 cm, been normal for gestational age. heart rate: 157 beats per minute. Maternal cervical canal: 3. cm long; normal length is 2.5 cm or more. biometrics: Biparietal diameter: 5.1 cm 21 weeks 4 days Head circumference: 19.7 cm 21 weeks 6 days Abdominal circumference: 13.1 cm 22 weeks 1 Femur length: 3.8 cm 22 weeks 0 days Estimated gestational age from initial scan: 21 weeks 6 Composite gestational age from present scan: 21 weeks 5 days Estimated weight and percentile: 470 g 53rd percentile Measurement variability in biometric dating: +/- 10 days from 12-20 weeks gestation, +/- 2 weeks from 20-30 weeks gestation, +/- 3 weeks at 30 weeks gestation or later. Anatomic survey: Neuro: Ventricles are normal at less than 10 mm. Cisterna magna is normal at 3-11 mm. Cerebellum i s normal in size and morphology. Nuchal skin fold: Normal at less than 6 mm between 14 and 20 weeks gestational age. Face: Nose and lips, facial profile are normal. Spine: No evidence for spina bifida. Heart: 4-chambered heart is present. Echogenic focus is noted within the ventricle measuring 3 mm. Diaphragm: Diaphragm is intact. Stomach: Left-sided stomach is present. Kidneys: No hydronephrosis. Normal is less than 5 mm in 2nd trimester, less than 7 mm in 3rd trimester. Cord: 3 vessel cord has orthotopic insertion. Bladder: Normal in size. Extremities: All 4 extremities are visualized. IMPRESSION: Single live intrauterine with ultrasound gestational age of 21 weeks 5 days. Echogenic focus is noted within the ventricle. This is overall nonspecific. However, recommend correl ation patient's history as well as appropriate risk factors if genetic testing is warranted. Otherwis e, interval ultrasound follow-up is recommended. Reviewed by: Shaunna Piper MD on 10/17/2022 4:05 PM PDT Approved by: Shaunna Piper MD on 10/17/2022 4:05 PM PDT Station ID: [id number]
== END 2022-10-16 20:45 | disposition home or self-care (01) ==
LOC: DI 20:44
PROVIDERS: ATTEND Obstetrics & Gynecology
DX: Z34.02 Encounter for supervision of normal first pregnancy, second trimester (principal); Z3A.21 21 weeks gestation of pregnancy

== ENCOUNTER 2022-11-27 07:12 | Outpatient (CLI) | payer BC ==
[2022-11-27 08:22] LABS: HCT - HEMATOCRIT 35.9 % (37.0-47.0); HGB - HEMOGLOBIN 11.9 g/dL (12.0-16.0); MEAN CORPUSCULAR HEMOGLOBIN 29.9 pg (27.0-31.0); MEAN CORPUSCULAR HGB CONC 33.1 g/dL (32.0-36.0); MEAN CORPUSCULAR VOLUME 90.2 fL (81.0-99.0); MEAN PLATELET VOLUME 10.2 fL (7.9-10.8); RED BLOOD COUNT 3.98 10^6/uL (4.20-5.40); RED CELL DISTRIBUTION WIDTH 13.6 % (12.0-15.0); WHITE BLOOD COUNT 9.7 x10^3/uL (4.8-10.8)
== END 2022-11-27 07:13 | disposition home or self-care (01) ==
LOC: LAB 07:12
PROVIDERS: ATTEND Obstetrics & Gynecology
DX: Z34.90 Encounter for supervision of normal pregnancy, unspecified, unspecified trimester (principal)
CPT/HCPCS: 36415; 82950; 85027

== ENCOUNTER 2023-01-21 08:00 | Outpatient (CLI) | payer BC | END 2023-01-21 23:59 | disposition home or self-care (01) | LOC: LAB.WC 08:00 | PROVIDERS: ATTEND Obstetrics & Gynecology | DX: O34.211 Maternal care for low transverse scar from previous cesarean delivery (principal); Z36.85 Encounter for antenatal screening for Streptococcus B | CPT/HCPCS: 87797 ==

== ENCOUNTER 2023-02-14 05:37 | Inpatient (IN) | payer BC ==
[~2023-02-14 05:37] MED LIST changes: -ACETAMINOPHEN 1,000 MG/100 ML 100 ML IV ONE; +CITRIC ACID/SODIUM CITRATE 15 ML UDC PO ONE; -HYDROmorphone 1 MG/ML SYRINGE IVP ONE; -KETAMINE 500 MG/10 ML VIAL IVP ONE; -KETOROLAC 30 MG/ML VIAL IVP ONE; -ONDANSETRON 4 MG/2 ML VIAL IVP ONE; -PROPOFOL 200 MG/20 ML VIAL IVP ONE; +ceFAZolin (2G) 2 GM in SODIUM CHLORIDE 0.9% MINIBAG 100 ML IV ONE; -fentaNYL 100 MCG/2 ML VIAL IVP ONE
[2023-02-14] MEDS ORDERED: LACTATED RINGERS 1,000 ML IV SCH ×3 (06:00→10:00)
[2023-02-14 06:28] LABS: BASOPHILS # (AUTO) 0.1 10^3/uL (0.0-0.1); BASOPHILS % (AUTO) 0.8 %; EOSINOPHILS # (AUTO) 0.1 10^3/uL (0.0-0.7); EOSINOPHILS % (AUTO) 0.7 %; HCT - HEMATOCRIT 39.3 % (37.0-47.0); LYMPHOCYTES # (AUTO) 1.4 10^3/uL (1.5-3.5); LYMPHOCYTES % (AUTO) 18.8 %; MEAN CORPUSCULAR HEMOGLOBIN 29.3 pg (27.0-31.0); MEAN CORPUSCULAR HGB CONC 33.1 g/dL (32.0-36.0); MEAN CORPUSCULAR VOLUME 88.5 fL (81.0-99.0); MEAN PLATELET VOLUME 11.7 fL (7.9-10.8); MONOCYTES # (AUTO) 0.9 10^3/uL (0.0-1.0); MONOCYTES % (AUTO) 11.8 %; NEUTROPHILS % (AUTO) 67.2 %; PLT - PLATELET COUNT 202 10^3/uL (130-450); RED BLOOD COUNT 4.44 10^6/uL (4.20-5.40); WHITE BLOOD COUNT 7.4 x10^3/uL (4.8-10.8)
[2023-02-14] MEDS ORDERED: KETOROLAC 30 MG/ML VIAL ONE (06:52)
[2023-02-14] MEDS ORDERED: PHENYLEPHRINE 10 MG/ML VIAL ONE (06:52)
[2023-02-14] MEDS ORDERED: ePHEDrine 50 MG/ML VIAL IVP ONE (06:52)
[2023-02-14] MEDS ORDERED: DEXAMETHASONE 4 MG/ML VIAL ONE (06:52)
[2023-02-14] MEDS ORDERED: ONDANSETRON 4 MG/2 ML VIAL ONE (06:52)
[2023-02-14] MEDS ORDERED: fentaNYL 100 MCG/2 ML VIAL ONE ×3 (06:52→09:41)
[2023-02-14] MEDS ORDERED: CARBOPROST TROMETHAMINE 250 MCG/ML AMP IM ONE (06:54)
[2023-02-14] MEDS ORDERED: ROPIVACAINE 0.5% PF 20 ML VIAL ONE ×2 (06:54→09:36)
[2023-02-14] MEDS ORDERED: METHYLERGONOVINE 0.2 MG/ML VIAL ONE (06:55)
[2023-02-14] MEDS ORDERED: ACETAMINOPHEN 1,000 MG/100 ML 1,000 MG/100 ML BAG IV ONE (07:00)
[2023-02-14] MEDS ORDERED: KETOROLAC 30 MG/ML VIAL IVP PRN (07:00)
[2023-02-14] MEDS ORDERED: ePHEDrine 50 MG/ML VIAL IVP PRN (07:19)
[2023-02-14] MEDS ORDERED: MORPHINE 2 MG/ML CARPUJECT IVP PRN (07:19)
[2023-02-14] MEDS ORDERED: ATROPINE ABBOJECT 1 MG/10 ML SYRINGE IVP PRN (07:19)
[2023-02-14] MEDS ORDERED: fentaNYL 100 MCG/2 ML VIAL IVP PRN (07:19)
[2023-02-14] MEDS ORDERED: METOCLOPRAMIDE 10 MG/2 ML VIAL IVP PRN (07:19)
[2023-02-14] MEDS ORDERED: ONDANSETRON 4 MG/2 ML VIAL IVP PRN (07:19)
[2023-02-14] MEDS ORDERED: HYDROmorphone 0.5 MG/0.5 ML SYRINGE IVP PRN (07:19)
[2023-02-14] MEDS ORDERED: NALOXONE 0.4 MG/ML VIAL IVP PRN (07:19)
--- NOTE | 2023-02-14 07:19 | ANESTHESIA ---
Pre-Anesthesia VS, & Labs - Diagnosis repeat C/S, desires sterilization - Procedure C/S, BTL Vital Signs: Temp Pulse Resp BP Pulse Ox O2 Flow Rate 36.7 C 83 12 127/80 99 02/14/23 05:53 02/14/23 05:53 02/14/23 05:53 02/14/23 05:53 02/14/23 05:53 Height: 5 ft 9 in - NPO >8 hours - Is Patient ?: Yes - Lab Results Current Lab Results: Laboratory Tests 02/14/23 06:18: WBC 7.4, RBC 4.44, Hgb 13.0, Hct 39.3, MCV 88.5, MCH 29.3, MCHC 33.1, RDW 15.0, Plt Count 202, MPV 11.7 H, Neut # (Auto) 5.0, Lymph # (Auto) 1.4 L, [place] # (Auto) 0.9, Eos # (Auto) 0.1, Baso # (Auto) 0.1, Absolute Nucleated RBC 0.00, Nucleated RBC % 0.0 02/14/23 06:18: Blood Type AB POSITIVE, Antibody Screen NEGATIVE Fish Bones: 02/14/23 06:18 Home Medications and Allergies Active Medications Lactated Ringer's (Lr) 1,000 mls @ 125 mls/hr IV .Q8H DANA Ketorolac Tromethamine (Ketorolac 30 Mg/Ml Vial) 30 mg IVP Q6HR PRN PRN Reason: Severe Pain (Level 7-10) Stop: 02/19/23 06:59 Allergies/Adverse Reactions: Allergies Allergy/AdvReac Type Severity Reaction Status Date / Time No Known Drug Allergies Allergy Verified 02/23/19 19:21 Anes History & Medical History - Anesthetic History Anesthesia Complications: reports: No previous complications Family history of Anesthesia Complications: Denies Family history of Malignant Hyperthermia: Denies - Medical History Cardiovascular: reports: None Pulmonary: reports: None Gastrointestinal: reports: None Urinary: reports: None Neuro: reports: None Musculoskeletal: reports: None Endocrine/Autoimmune: reports: None Blood Disorders: reports: None Skin: reports: None Smoking Status: Never smoker - Surgical History Gynecologic: reports: section Exam General: Alert Dental: WNL Mouth Openin Fingerbreadth Neck Mobility: Normal Mallampati classification: II Thyromental Distance: 4-6 cm Respiratory: Lungs clear Cardiovascular: Regular rate Plan Anesthesia Type: Spinal, Transverse Abdominis Plane (TAP) Block Regional Block: Per Surgeon's request for Post Op pain control Consent for Procedure(s) Verified and Reviewed: Yes Code Status: Attempt Resuscitation ASA classification: 2-Mild systemic disease Is this case an emergency?: No
--- NOTE | 2023-02-14 07:22 | HISTORY & PHYSICAL EXAMINATION ---
Admit History - Visit Reason Visit Reason: Other (Scheduled RCD) - : 3 Parity: 1 Care: positive: [facility] Risk/History: positive: Previous Complications This : positive: Other (Prior CD x1, AMA, excessive weight gain, depressions/anxiety, genital HSV hx) Smoking Status: Never smoker - Mother's Labs Mother's Blood Type: positive: AB Mother's RH: positive: Positive GBS: positive: Group B Step Negative Rubella Status: positive: Immune - Other Maternal History Other Maternal History: Med: Prior CD x1, AMA, excessive weight gain, depressions/anxiety, genital HSV hx Surg: cd 2019, wisdom teeth Fam: HTN, heart disease Social: , denies conner - HPI Vital Signs Temperature 98.1 F 02/14/23 05:53 Heart Rate 83 02/14/23 05:53 Respiratory Rate 12 02/14/23 05:53 Blood Pressure 127/80 02/14/23 05:53 O2 Saturation 99 02/14/23 05:53 Temperature 98.1 F 02/14/23 05:53 Heart Rate 83 02/14/23 05:53 Respiratory Rate 12 02/14/23 05:53 Blood Pressure 127/80 02/14/23 05:53 O2 Saturation 99 02/14/23 05:53 If not protocol: Oxygen Flow, liters/minute - Results and Plan Findings/Impression: direct admission Meds/Allgy - Home Medications Home Medications: Ambulatory Orders Medication Instructions Recorded Confirmed Amox/Clav 875/125 [Augmentin] 1 each PO Q12H #20 tablet 03/02/19 - Allergies Allergies/Adverse Reactions: Allergies Allergy/AdvReac Type Severity Reaction Status Date / Time No Known Drug Allergies Allergy Verified 02/23/19 19:21 Review of Systems - All Other Systems All Other Systems: reports: Reviewed and negative Physical - Abdominal Exam Vital Signs: Temp Pulse Resp BP Pulse Ox O2 Flow Rate 98.1 F 83 12 127/80 99 02/14/23 05:53 02/14/23 05:53 02/14/23 05:53 02/14/23 05:53 02/14/23 05:53 - Monitoring Heart Rate Baseline: 140 Strip Review: positive: Category I - Presentation Presentation: positive: Vertex (Placenta posterior EFW 3200g) Plan for Labor - Plan For Labor I expect patient to be DC'd or transferred within 96 hours.: Yes Plan for Labor: 42yo at 39.1w by LMP consistent with 13w US presenting for scheduled RCD - Admit - T&S, CBC - To OR for RCD
[2023-02-14] MEDS ORDERED: BUPIVACAINE 0.5% PF 10 ML VIAL ONE (07:24)
[2023-02-14] MEDS ORDERED: OXYTOCIN/SODIUM CHLORIDE 500 ML IV ONE (07:33)
[2023-02-14] MEDS ORDERED: SODIUM CHLORIDE 0.9% 10 ML VIAL IVP ONE (08:34)
[2023-02-14] MEDS ORDERED: LIDOCAINE-PF 2% 10 ML AMP SUBQ ONE (09:46)
[2023-02-14] MEDS ORDERED: SIMETHICONE CHEW 80 MG TABLET PO PRN (09:47)
[2023-02-14] MEDS ORDERED: OXYTOCIN/SODIUM CHLORIDE 500 ML IV PRN (09:47)
[2023-02-14] MEDS ORDERED: ONDANSETRON ODT 4 MG TABLET TL PRN (09:47)
[2023-02-14] MEDS ORDERED: SODIUM CHLORIDE FLUSH 0.9% 10 ML SYRINGE IVP PRN (09:47)
--- NOTE | 2023-02-14 09:51 | DELIVERY NOTE ---
Delivery Note - Infant Delivery Method Infant Delivery Method: positive: Repeat - Presentation Presentation: positive: SIMIN - right occiput anterior - Nuchal Cord Nuchal Cord: positive: Present (x1 reduced after delivery) - Amniotic Fluid Description Amniotic Fluid Description: positive: Clear - Vacuum Use Indication for Vacuum Use: positive: Other (Assistance for delivering head at RCD) Vacuum Extraction: positive: Successful Number of pop-offs: 0 - Delivery Outcome Delivery Outcome: positive: Livebirth - [place] : positive: Bulb syringe, Stimulated, Warmed, [place] used, Warmer used sex: positive: Female - Cord Cord: positive: 3 vessels - Placenta Placenta: positive: Intact - Estimated Blood Loss Estimated Blood Loss (in cc): 800 - Post Delivery Events Post Delivery Events: positive: No post delivery events - Delivery Comments (Free Text/Narrative) Delivery Comments (Free Text/Narrative): See operative report for uncomplicated RCD/BS
--- NOTE | 2023-02-14 10:13 | OPERATIVE REPORT ---
Operative Report - General Admit Date: 02/14/23 Planned Procedure: Repeat section, bilateral salpingectomy Pre-Op Diagnosis: Prior CDx1, 39w, desires RCD, multiparity, desires sterilization Procedure Performed: Repeat section, bilateral salpingectomy Post Op Diagnosis: Prior CDx1, 39w, desires RCD, multiparity, desires sterilization - Procedure Note Primary Surgeon: Laina Guajardo DO Secondary Surgeon: Bessie Wooten NP; assistance required for retraction, safe completion Anesthesia Provider: Vianey Rosenbaum CRNA Anesthesia Technique: Spinal Pathology: None Placenta discarded Cord blood collected Estimated Blood Loss (mL): 800 Indications: Prior CDx1, 39w, desires RCD, multiparity, desires sterilization Findings: Normal appearing uterus, tubes, ovaries Minimal scar adhesions Complications: None - Other Other Information/Narrative: Under spinal anaesthetic with a Garcia catheter inserted, the patient was prepped and draped in the usual sterile fashion in the supine position with a leftward tilt. A Pfannensteil incision was made through the patients previous incision. The incision was carried down to the fascia with sharp dissection and cautery. The fascia was incised transversely and dissected off the rectus muscle using sharp dissection. Electrocautery was used for hemostasis. The peritoneum was opened taking care not to injure the bladder. The vesicouterine peritoneum was dissected off the lower uterine segment. The lower segment was assessed and a low transverse incision was made. The uterine incision was extended bluntly. The fetus was presenting as a vertex. Head brought to incision but did not deliver initially. Kiwi vacuum applied to flexion point to help guide vertex, h ead delivered then easily. No detachments. The rest of the body followed easily. After one minute of delayed cord clamping, the cord was clamped twice and cut and the baby transferred to the warmer, awaiting the pediatric staff. Cord blood collected. The placenta was then delivered with assistance. The uterus was explored and was empty of all tissue. The uterus was exteriorized for better visualization. The uterine incision was then closed in two layers with 0- Monocryl suture. The first layer was locking and the second was imbricating. Tubes and ovaries were examined and appeared normal. Attention then turned to bilateral salpingectomy. Tubes grasped with small Ligasure and this was used to transect tubes along mesosalpinx. This was repeated on left side. Hemostasis noted. The fascia was closed with 0-Vicryl in a running unlocked fashion. Subcutaneous layer reapproximated with 3-0 chromic. The skin was then reapproximated with 3-0 monocryl subcuticular suture. At the end of the procedure all sponges, instruments, and sharps were counted and correct. Estimated blood loss was 800cc. Transferred to PACU in stable condition.
[2023-02-14] MEDS ORDERED: LACTATED RINGERS 1,000 ML IV ONE (10:21)
--- NOTE | 2023-02-14 11:28 | ANESTHESIA POST OP EVALUATION ---
Anesthesia Post Eval - Post Anesthesia Eval Vitals: Last Vital Signs Temp 36.5 C 02/14/23 11:00 Pulse 69 02/14/23 11:00 Resp 17 02/14/23 11:00 BP 115/70 02/14/23 11:00 Pulse Ox 100 02/14/23 11:00 O2 Flow Rate CV Function Including HR & BP: Stable Pain Control: Satisfactory Nausea & Vomiting: Negative Mental Status: Baseline Respiratory Status: Airway Patent Hydration Status: Satisfactory Anesthesia Complications: None
[2023-02-14] MEDS: oxyCODONE 5 MG TABLET PO PRN ×4 (11:38→23:52)
[2023-02-14] MEDS: ACETAMINOPHEN 500 MG TABLET PO SCH ×2 (16:09→23:52)
[2023-02-14] MEDS: KETOROLAC 30 MG/ML VIAL IVP SCH ×2 (16:09→21:36)
[2023-02-14] MEDS ORDERED: SODIUM CHLORIDE FLUSH 0.9% 10 ML SYRINGE IVP SCH (17:00)
[2023-02-14] MEDS: DOCUSATE SODIUM 100 MG CAPSULE PO SCH (23:53)
[2023-02-15] MEDS: IBUPROFEN 600 MG TABLET PO SCH ×3 (00:56→00:58)
[2023-02-15] MEDS: KETOROLAC 30 MG/ML VIAL IVP SCH ×2 (03:54→10:03)
[2023-02-15 05:41] LABS: BASOPHILS % (AUTO) 0.2 %; EOSINOPHILS % (AUTO) 0.3 %; HCT - HEMATOCRIT 35.9 % (37.0-47.0); HGB - HEMOGLOBIN 11.9 g/dL (12.0-16.0); MEAN CORPUSCULAR HGB CONC 33.1 g/dL (32.0-36.0); MEAN CORPUSCULAR VOLUME 90.4 fL (81.0-99.0); MEAN PLATELET VOLUME 11.6 fL (7.9-10.8); MONOCYTES # (AUTO) 1.1 10^3/uL (0.0-1.0); MONOCYTES % (AUTO) 8.8 %; NEUTROPHILS # (AUTO) 10.4 10^3/uL (1.5-6.6); NEUTROPHILS % (AUTO) 82.1 %; PLT - PLATELET COUNT 181 10^3/uL (130-450); RED BLOOD COUNT 3.97 10^6/uL (4.20-5.40); WHITE BLOOD COUNT 12.7 x10^3/uL (4.8-10.8)
--- NOTE | 2023-02-15 06:07 | PROVIDER PROGRESS NOTE ---
Subjective - Prog Note Date Prog Note Date: 02/15/23 Prog Note Time: 06:05 - Subjective Pt reports feeling: Improved Subjective: Pt well, lochia appropriate, + amb, + void, + chyna PO, + flatus Pt is pumping as baby was transferred out. continues to advance prefers D/C home tomorrow. Objective - Vital Signs/Intake & Output Reviewed Vital Signs: Yes Vital Signs: Vital Signs x48h Temp Pulse Resp BP Pulse Ox 02/15/23 04:45 98.7 F 64 15 139/78 H 98 02/15/23 00:19 98.6 F 64 17 128/78 97 Intake & Output: Intake & Output 02/12/23 02/13/23 02/14/23 02/15/23 23:59 23:59 23:59 23:59 Output Total 975 600 Balance -975 -600 - Objective General Appearance: positive: No acute distress Eyes Bilateral: positive: Normal inspection Respiratory: positive: Chest non-tender, No respiratory distress Cardiovascular: positive: Regular rate & rhythm, No murmur, No gallop Abdomen: positive: Non-tender, Other (INC CDI - dressing removed. - sutures) Skin: positive: Color nml Extremities: positive: Non-tender, Pedal edema (+1) Neurologic/Psychiatric: positive: Oriented x3, Mood/affect nml - Lab Results Fish Bones: 02/15/23 05:35 Other Labs: Lab Results x24hrs 02/15/23 02/14/23 02/14/23 Range/Units 05:35 06:18 06:18 WBC 12.7 H 7.4 (4.8-10.8) x10^3/uL RBC 3.97 L 4.44 (4.20-5.40) 10^6/uL Hgb 11.9 L 13.0 (12.0-16.0) g/dL Hct 35.9 L 39.3 (37.0-47.0) % MCV 90.4 88.5 (81.0-99.0) fL MCH 30.0 29.3 (27.0-31.0) pg MCHC 33.1 33.1 (32.0-36.0) g/dL RDW 15.0 15.0 (12.0-15.0) % Plt Count 181 202 (130-450) 10^3/uL MPV 11.6 H 11.7 H (7.9-10.8) fL Neut # (Auto) 10.4 H 5.0 (1.5-6.6) 10^3/uL Lymph # (Auto) 1.0 L 1.4 L (1.5-3.5) 10^3/uL [place] # (Auto) 1.1 H 0.9 (0.0-1.0) 10^3/uL Eos # (Auto) 0.0 0.1 (0.0-0.7) 10^3/uL Baso # (Auto) 0.0 0.1 (0.0-0.1) 10^3/uL Absolute Nucleated RBC 0.00 0.00 x10^3/uL Nucleated RBC % 0.0 0.0 /100WBC Blood Type AB POSITIVE Antibody Screen NEGATIVE Assessment/Plan - Problem List (1) Delivery by section Impression: continue to advance continue to pump reviewed risk of anxiety / depression due to her medical history, h/o anxiety, and the baby being transferred out currently on 40mg fluoxetine and is taking her own med anticipate D/C home tomorrow.
[2023-02-15 08:14] VITALS: O2SAT 100
[2023-02-15] MEDS: DOCUSATE SODIUM 100 MG CAPSULE PO SCH ×2 (08:24→22:28)
[2023-02-15] MEDS: ACETAMINOPHEN 500 MG TABLET PO SCH ×2 (08:24→16:15)
[2023-02-15] MEDS: oxyCODONE 5 MG TABLET PO PRN ×2 (11:52→22:26)
[2023-02-15] MEDS: IBUPROFEN 800 MG TABLET PO SCH ×2 (16:41→22:26)
[2023-02-16] MEDS: ACETAMINOPHEN 500 MG TABLET PO SCH ×2 (00:19→12:04)
[2023-02-16] MEDS: IBUPROFEN 800 MG TABLET PO SCH ×2 (04:36→12:04)
--- NOTE | 2023-02-16 11:57 | Discharge Plan ---
Discharge Plan Problem Reviewed?: Yes Disposition: Home, Self Care Condition: Good Diet: Regular Activity Restrictions: Activity as Tolerated Shower Restrictions: No Driving Restrictions: Yes (No driving with oxycodone) Weight Bearing: Full Weight Instruction Topics: Depression , No Smoking: If you smoke, Please STOP! Call for help. Follow-up with: Laina Guajardo DO [Primary Care Provider] -
--- NOTE | 2023-02-16 12:02 | DISCHARGE SUMMARY ---
Discharge Summary Admit Date: 02/14/23 Discharge Date: 02/16/23 Discharging Provider: Laina Guajardo DO Code Status: Attempt Resuscitation Condition at Discharge: Good Discharge Disposition: 01 Home, Self Care Discharge Facility Name: [facility] - DIAGNOSES Admission Diagnoses: 42yo admitted at 39w Prior CD x1, desires repeat Multiparity, desires sterilization - HPI History of Present Illness: 42yo admitted at 39w for scheduled repeat section. - HOSPITAL COURSE Hospital Course: 42yo admitted at 39w for scheduled repeat section and bilateral salpingectomy for sterilization. See operative report for uncomplicated procedur es. She is recovering well and feels ready for discharge POD#2. [place] [facility] [place] should be coming home tonight. She has been pumping well. Appropriate lochia. Voiding. Ambulating well. Tolerating regular diet. She will follow up 02/22/23 1100 - ALLERGIES Allergies/Adverse Reactions: Allergies Allergy/AdvReac Type Severity Reaction Status Date / Time No Known Drug Allergies Allergy Verified 02/23/19 19:21 - MEDICATIONS Home Medications: Ambulatory Orders Medication Instructions Recorded Confirmed Amox/Clav 875/125 [Augmentin] 1 each PO Q12H #20 tablet 03/02/19 - PHYSICAL EXAM AT DISCHARGE General Appearance: positive: No acute distress Eyes Bilateral: positive: EOMI Respiratory: positive: No respiratory distress Abdomen: positive: Other (Incision c/d/i, ff, appropriately tender) Skin: positive: Color nml Extremities: positive: Non-tender Neurologic/Psychiatric: positive: Oriented x3 - LABS Result Diagrams: 02/15/23 05:35 - QUALITY (Female Hip Fx Only) Was patient sent home on osteoporosis medication?: No - TIME SPENT Time Spent in Discharge (Minutes): 25
[2023-02-16] MEDS: DOCUSATE SODIUM 100 MG CAPSULE PO SCH (12:04)
[2023-02-16] MEDS: oxyCODONE 5 MG TABLET PO PRN (14:34)
[2023-02-16 16:36] VITALS: BP 125/77
== END 2023-02-16 17:31 | disposition home or self-care (01) | DRG 785 ==
LOC: FBP 05:37
PROVIDERS: ADMIT Obstetrics & Gynecology; ATTEND Obstetrics & Gynecology
PROC: 0UB70ZZ Excision of Bilateral Fallopian Tubes, Open Approach (ICD-10-PCS; 2023-02-14)
PROC: 10D00Z1 Extraction of Products of Conception, Low, Open Approach (ICD-10-PCS; principal; 2023-02-14 07:30)
DX: O34.211 Maternal care for low transverse scar from previous cesarean delivery (principal); Z3A.39 39 weeks gestation of pregnancy; Z37.0 Single live birth; Z30.2 Encounter for sterilization; O26.03 Excessive weight gain in pregnancy, third trimester; O99.344 Other mental disorders complicating childbirth; F32.A Depression, unspecified; F41.9 Anxiety disorder, unspecified; Z86.19 Personal history of other infectious and parasitic diseases; O69.81X0 Labor and delivery complicated by cord around neck, without compression, not applicable or unspecified
CPT/HCPCS: 36415; 85025; 86850; 86900; 86901; A9270; J0131; J2210; J2795; J7120